=== PATIENT | male | born 1995 | race Caucasian/White ===

== ENCOUNTER 2021-02-22 16:54 | Emergency (ER) | payer SELFPAY ==
[~2021-02-22] VITALS: Ht 193 cm; Wt 113.4 kg
[2021-02-22 17:57] LABS: BASOPHILS % (AUTO) 0 % (0-10); EOSINOPHILS # (AUTO) 0.2 10^3/uL (0.0-0.3); EOSINOPHILS % (AUTO) 2 % (0-10); HEMATOCRIT 44 % (40-54); HEMOGLOBIN 14.8 g/dL (13.3-17.7); LYMPHOCYTES # (AUTO) 1.8 10^3/uL (1.0-4.0); LYMPHOCYTES % (AUTO) 19 % (12-44); MEAN CORPUSCULAR HEMOGLOBIN 31 pg (25-34); MEAN CORPUSCULAR HGB CONC 33 g/dL (32-36); MEAN CORPUSCULAR VOLUME 92 fL (80-99); MEAN PLATELET VOLUME 8.9 fL (9.0-12.2); MONOCYTES # (AUTO) 1.1 10^3/uL (0.0-1.0); MONOCYTES % (AUTO) 11 % (0-12); NEUTROPHILS # (AUTO) 6.4 10^3/uL (1.8-7.8); NEUTROPHILS % (AUTO) 67 % (42-75); PLATELET COUNT 281 10^3/uL (130-400); WHITE BLOOD COUNT 9.5 10^3/uL (4.3-11.0)
[2021-02-22] MEDS ORDERED: fentaNYL INJ 100 MCG/2 ML AMP IVP ONE (18:00)
[2021-02-22] MEDS ORDERED: LACTATED RINGERS 1,000 ML IV SCH (18:00)
[2021-02-22] MEDS ORDERED: ACHD5005 PO (18:03)
[2021-02-22] MEDS ORDERED: DOXY100T2 PO (18:03)
--- NOTE | 2021-02-22 18:03 | ED Integumentary General ---
General Chief Complaint: Bite-Animal/Human/Insect Stated Complaint: SORE ON BOTTOM Nursing Triage Note: PT AMBULATE TO ROOM FT3 WITH C/O SPIDER BITE TO LEFT BUTTOCKS X5 DAYS AGO. PT REPORTS THE AREA STARTED HURTING X3 DAYS AGO. PT STATES HE WENT TO THE ED IN [place], [place] LAST NIGHT AND DID NOT WAIT BECAUSE HE WAS TOLD "IT WAS GOING TO BE LIKE A 6 HOUR WAIT". PT REPORTS TAKING PENICILLIN THAT HE HAD AT HOME WITHOUT RELIEF. Source: patient Exam Limitations: no limitations (ILDA MCLEAN APRN) History of Present Illness Date Seen by Provider: Feb 22, 2021 Time Seen by Provider: 17:59 Initial Comments to ER by private vehicle with reports of a sore to the left butt cheek for about 5 days. He was seen at the [place] [facility] but left due to the extended wait time. He reports body aches chills. Otherwise healthy. Lives in [facility]. Timing/Duration: just prior to arrival Severity: moderate Associated Symptoms: denies symptoms (ILDA MCLEAN APRN) Allergies and Home Medications Allergies Coded Allergies: No Known Drug Allergies (Unverified , 02/22/21) Patient Home Medication List Home Medication List Reviewed: Yes (ILDA MCLEAN APRN) Doxycycline Hyclate (Doxycycline Hyclate) 100 Mg Tablet, 100 MG PO BID Prescribed by: ILDA MCLEAN on 02/22/211802 Hydrocodone/Acetaminophen (Hydrocodone-Acetamin 5-325 mg) 1 Each Tablet, 1 TAB P O Q4H PRN for PAIN-MODERATE (5-7) Prescribed by: ILDA MCLEAN on 02/22/211802 Review of Systems Review of Systems Constitutional: see HPI, chills EENTM: see HPI Respiratory: no symptoms reported Cardiovascular: no symptoms reported Genitourinary: no symptoms reported Musculoskeletal: no symptoms reported Skin: see HPI Psychiatric/Neurological: No Symptoms Reported Endocrine: No Symptoms Reported Hematologic/Lymphatic: No Symptoms Reported (ILDA MCLEAN APRN) Past Strhlic-Kcjwko-Hyuxxg Hx Patient Social History Tobacco Use?: No Smoking Status: Never a Smoker Smokeless Tobacco Frequency: Never a User Use of E-Cig and/or Vaping dev: No Substance use?: No Alcohol Use?: No (ILDA MCLEAN APRN) Immunizations Up To Date First/Initial COVID19 Vaccinat: 3-5 MONTHS AGO COVID19 Vaccine Cook Roast: Issuu (ILDA MCLEAN APRN) Physical Exam Vital Signs Vital Signs - First Documented 02/22/21 17:09 Temp 36.6 Pulse 100 Resp 17 B/P (MAP) 144/70 (94) O2 Delivery Room Air (SUE RESTREPO MD) Vital Signs Capillary Refill : Less Than 3 Seconds (ILDA MCLEAN APRN) General Appearance: WD/WN, no apparent distress HEENT: PERRL/EOMI, normal ENT inspection Neck: non-tender, full range of motion Respiratory: no respiratory distress, no accessory muscle use Neurologic/Psychiatric: alert, normal mood/affect, oriented x 3 Skin: normal color, warm/dry Skin Problem Location: other Skin Problem Character: abscess, other (There is a palm sized area of erythema to the left buttock. There is central necrosis of about 1 cm. On bedside ultrasound there is a small amount of fluid within this.) (ILDA MCLEAN APRN) Progress/Results/Core Measures Results/Orders Lab Results Laboratory Tests Test 02/22/21 17:54 Range/Units White Blood Count 9.5 4.3-11.0 10^3/uL Red Blood Count 4.80 4.30-5.52 10^6/uL Hemoglobin 14.8 13.3-17.7 g/dL Hematocrit 44 40-54 % Mean Corpuscular Volume 92 80-99 fL Mean Corpuscular Hemoglobin 31 25-34 pg Mean Corpuscular Hemoglobin Concent 33 32-36 g/dL Red Cell Distribution Width 12.3 10.0-14.5 % Platelet Count 281 130-400 10^3/uL Mean Platelet Volume 8.9 L 9.0-12.2 fL Immature Granulocyte % (Auto) 0 % Neutrophils (%) (Auto) 67 42-75 % Lymphocytes (%) (Auto) 19 12-44 % Monocytes (%) (Auto) 11 0-12 % Eosinophils (%) (Auto) 2 0-10 % Basophils (%) (Auto) 0 0-10 % Neutrophils # (Auto) 6.4 1.8-7.8 10^3/uL Lymphocytes # (Auto) 1.8 1.0-4.0 10^3/uL Monocytes # (Auto) 1.1 H 0.0-1.0 10^3/uL Eosinophils # (Auto) 0.2 0.0-0.3 10^3/uL Basophils # (Auto) 0.0 0.0-0.1 10^3/uL Immature Granulocyte # (Auto) 0.0 0.0-0.1 10^3/uL Sodium Level 138 135-145 MMOL/L Potassium Level 4.1 3.6-5.0 MMOL/L Chloride Level 101 98-107 MMOL/L Carbon Dioxide Level 24 21-32 MMOL/L Anion Gap 13 5-14 MMOL/L Blood Urea Nitrogen 12 7-18 MG/DL Creatinine 0.86 0.60-1.30 MG/DL Estimat Glomerular Filtration Rate 122 BUN/Creatinine Ratio 14 Glucose Level 107 H 70-105 MG/DL Calcium Level 8.9 8.5-10.1 MG/DL (SUE RESTREPO MD) Medications Given in ED Current Medications Medications Dose Ordered Sig/Robert Route Start Time Stop Time Status Last Admin Dose Admin Doxycycline Hyclate 100 mg/ Sodium Chloride 100 ml @ 100 mls/hr ONCE ONCE IV 02/22/21 18:15 02/22/21 19:14 DC 02/22/21 18:34 100 MLS/HR Fentanyl Citrate 75 mcg ONCE ONCE IVP 02/22/21 18:00 02/22/21 18:01 DC 02/22/21 18:08 75 MCG (SUE RESTREPO MD) Vital Signs/I&O 02/22/21 17:09 Temp 36.6 Pulse 100 Resp 17 B/P (MAP) 144/70 (94) O2 Delivery Room Air (SUE RESTREPO MD) 2 Blood Pressure Mean: 94 Departure Communication (Admissions) 1405-area anesthetized with lidocaine 1% without epinephrine. Buffered with sodium bicarb in a 1:9 ratio. Incision made with 11 blade scalpel. Moderate amount of purulent material expressed. Loculations broken up with the blunt end of a sterile Q-tip. Cavity packed with quarter inch plain gauze covered with dry gauze. Labs are unremarkable. He will get doxycycline 100 mg IV here and a take-home pack of hydrocodone. I instructed him to come back on of this week sometime in the evening for wound check. (ILDA MCLEAN APRN) Impression Primary Impression: Abscess Disposition: HOME, SELF-CARE Condition: Stable Departure-Patient Inst. Decision time for Depature: 18:01 (ILDA MCLEAN APRN) Referrals: NO,LOCAL PHYSICIAN (PCP/Family) Primary Care Physician Patient Instructions: Abscess Incision and Drainage ED Add. Discharge Instructions: Warm compresses to the area. Tylenol and ibuprofen for pain control in addition to the prescribed pain medication. Antibiotics as directed. Scripts Hydrocodone/Acetaminophen (Hydrocodone-Acetamin 5-325 mg) 1 Each Tablet 1 TAB PO Q4H PRN for PAIN-MODERATE (5-7), #14 TAB Prov: ILDA MCLEAN APRN 02/22/21 Doxycycline Hyclate (Doxycycline Hyclate) 100 Mg Tablet 100 MG PO BID, #20 TAB 0 Refills Prov: ILDA MCLEAN APRN 02/22/21 ATTENDING PHYSICIAN NOTE: I was physically present as attending physician in the emergency department during the care of this patient, but I was not directly involved in the decision making or delivery of care for this patient. (SUE RESTREPO MD) ILDA MCLEAN APRN Feb 22, 2021 18:03 SUE RESTREPO MD Feb 22, 2021 19:19
[2021-02-22 18:07] LABS: POTASSIUM 4.1 MMOL/L (3.6-5.0)
[2021-02-22 18:08] LABS: CALCIUM 8.9 MG/DL (8.5-10.1)
[2021-02-22 18:12] LABS: CREATININE SERUM 0.86 MG/DL (0.60-1.30)
[2021-02-22] MEDS ORDERED: DOXYCYCLINE INJECTION 100 MG in NS (IVPB) 100 ML IV ONE (18:15)
[2021-02-22 19:35] VITALS: BP 128/84
== END 2021-02-22 19:35 | disposition home or self-care (01) ==
LOC: ER 16:57
DX: L02.31 Cutaneous abscess of buttock (principal)
CPT/HCPCS: 36415; 80048; 85025; 87070; 87077; 87186; 87205